=== PATIENT | male | born 2000 | race Hispanic/Latino ===

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

== ENCOUNTER 2020-02-15 06:25 | Emergency (ER) | payer SELFPAY ==
[2020-02-15] MEDS ORDERED: predniSONE 20 MG TAB ONE (06:46)
== END 2020-02-15 07:58 | disposition home or self-care (01) ==
LOC: ERS 06:25
DX: J45.901 Unspecified asthma with (acute) exacerbation (principal)
CPT/HCPCS: 94640; J7512; J7620

== ENCOUNTER 2020-03-14 14:17 | Emergency (ER) | payer OTHER, SELFPAY ==
[2020-03-15 15:27] LABS: SARS-CoV-2 MS2 Positive; SARS-CoV-2 N Gene Negative; SARS-CoV-2 S Gene Negative; SARS-CoV-2 orf1ab Negative
== END 2020-03-14 14:37 | disposition home or self-care (01) ==
LOC: ERS 14:17
DX: Z20.828 Contact with and (suspected) exposure to other viral communicable diseases (principal); J45.909 Unspecified asthma, uncomplicated
CPT/HCPCS: 87635; 99283; U0003